=== PATIENT | male | born 1975 | race African-American/Black ===

== ENCOUNTER 2016-11-16 18:45 | Inpatient (IN) | payer SELFPAY ==
[2016-11-16] MEDS ORDERED: Morphine 2 MG/ML Syringe IVPUSH ONE ×2 (18:51→19:26)
[2016-11-16] MEDS: Labetalol 20 MG/4 ML Syringe IVPUSH ONE ×2 (18:54→19:33)
[2016-11-16] MEDS: Sodium Chloride 0.9% 1,000 ML IV SCH (19:00)
--- NOTE | 2016-11-16 19:06 | EDM.PDOC ---
ED HPI GENERAL MEDICAL PROBLEM - General Stated Complaint: CHEST PAIN Time Seen by Provider: 11/16/16 18:58 Source of Information: Reports: Patient, EMS, EMS Notes Reviewed History Limitations: Reports: Respiratory Distress - History of Present Illness INITIAL COMMENTS - FREE TEXT/NARRATIVE: 41 years old black male with a H/O HTN, came to the ed by EMS due SS chest pain. EMS was 7 min from [place] and 45 min from [place]. I adviced the EMS to come to our ED. On arrival, pt was crasping for air. 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 As soon O2 by NC was applied, Pt felt better. SBP was 169 on arrival HR was 115 and puls ox was 91 on RA. ECG showed t wave inversion inf leads (poor recording), no family. Onset: Today, Sudden Onset Date: 11/16/16 Onset Time: 18:00 Duration: Minutes:, Getting Worse Location: Reports: Chest Quality: Reports: Pressure, Stabbing, Throbbing Severity: Severe Improves with: Reports: Medication Worsens with: Reports: Movement Left Upper Anterior Chest Pain Score (Numeric/FACES): 6 - Related Data Allergies Allergy/AdvReac Type Severity Reaction Status Date / Time No Known Allergies Allergy Verified 11/16/16 20:40 Home Meds: Home Meds Losartan/Hydrochlorothiazide [Losartan-HCTZ 50-12.5 MG] 1 each PO DAILY [History] Past Medical History Cardiovascular History: Reports: Hypertension Social & Family History - Tobacco Use Smoking Status *Q: Current Every Day Smoker Years of Tobacco use: 20 Packs/Tins Daily: 0.5 - Recreational Drug Use Recreational Drug Use: No ED ROS GENERAL - Review of Systems Review Of Systems: See Below Constitutional: Reports: No Symptoms HEENT: Reports: No Symptoms Respiratory: Reports: Shortness of Breath Cardiovascular: Reports: Chest Pain Endocrine: Reports: No Symptoms GI/Abdominal: Reports: No Symptoms : Reports: No Symptoms Musculoskeletal: Reports: No Symptoms Skin: Reports: No Symptoms Neurological: Reports: No Symptoms Psychiatric: Reports: No Symptoms Hematologic/Lymphatic: Reports: No Symptoms Immunologic: Reports: No Symptoms ED EXAM, GENERAL - Physical Exam Exam: See Below Exam Limited By: Other (CP) General Appearance: Alert, WD/WN, Moderate Distress Eye Exam: Bilateral Eye: Normal Inspection Ears: Normal External Exam Ear Exam: Bilateral Ear: Auricle Normal Nose: Normal Inspection, Normal Mucosa Throat/Mouth: Normal Inspection Head: Atraumatic, Normocephalic Neck: Normal Inspection, Supple, Non-Tender, Full Range of Motion Respiratory/Chest: Lungs Clear, Decreased Breath Sounds, Accessory Muscle Use Cardiovascular: Tachycardia Peripheral Pulses: 3+: Femoral (L), Femoral (R) GI/Abdominal: Normal Bowel Sounds, Soft, Non-Tender, No Organomegaly (Male) Exam: Deferred Rectal (Males) Exam: Deferred Back Exam: Normal Inspection, Full Range of Motion Extremities: Normal Inspection, Normal Range of Motion, Non-Tender, No Pedal Edema Neurological: Alert, Oriented, CN II-XII Intact, Normal Cognition Psychiatric: Normal Affect, Normal Mood Skin Exam: Warm, Dry, Intact, Normal Color, No Rash Lymphatic: No Adenopathy EKG INTERPRETATION EKG Date: 11/16/16 Time: 18:45 Rhythm: NSR Rate (beats/min): 109 [place]: normal P-wave: present QRS: normal ST-T: normal QT: normal Comparison: NA - no prior EKG EKG Interpretation Comments: S1Q3T3 sign suggestive of PE Course - Vital Signs Text/Narrative:: 41 years old black male with a H/O HTN< came to the ed by EMS due SS chest pain. EMS was 7 min from [place] and 45 min from [place]. I adviced the EMS to come to our ED. On arrival, pt was crasping for air. 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 As soon O2 by NC was applied, Pt felt better. SBP was 169 on arrival HR was 115 and puls ox was 91 on RA. ECG showed S1Q3T3 Sign suggestive of PE PE: Sinus Tach, with SSCP, BP was 167/101 Labs: Pending Imaging: Pending Pt was signed out to Dr. Fitzgerald at 7 pm due to shift changes, after pt was stabilized with O2 by NC, Lapetolol, Morphin sulfate and NTG patch Last Recorded V/S: Last Vital Signs Temp 36.6 C 11/17/16 04:00 Pulse 94 11/17/16 04:00 Resp 18 11/17/16 04:00 BP 136/90 11/17/16 04:00 Pulse Ox 96 11/17/16 04:00 - Orders/Labs/Meds Orders: Active Orders 24 hr Category Date Time Status Ang Chest [CT] Stat Exams 11/16/16 19:44 Taken Chest 1V Frontal [CR] Stat Exams 11/16/16 18:50 Taken Medication Orders Sodium Chloride (Normal Saline) 1,000 mls @ 125 mls/hr IV ASDIRECTED JAQUELIN Stop: 11/18/16 02:59 Morphine Sulfate (Morphine) 2 mg IVPUSH Q2H PRN PRN Reason: Pain (severe 7-10) Last Admin: 11/17/16 03:55 Dose: 2 mg Admin: 11/17/16 00:15 Dose: 2 mg Admin: 11/16/16 22:26 Dose: 2 mg Rivaroxaban (Xarelto) 15 mg PO BID JAQUELIN Warfarin Sodium (Coumadin) 10 mg PO ONETIME ONE Stop: 11/17/16 16:01 Labs: Laboratory Tests 11/16/16 11/16/16 11/16/16 Range/Units 19:00 19:00 19:00 WBC 13.2 H (4.5-12.0) X10-3/uL RBC 4.99 (4.30-5.75) x10(6)uL Hgb 14.6 (11.5-15.5) g/dL Hct 43.4 (30.0-51.3) % MCV 86.8 (80-96) fL MCH 29.3 (27.7-33.6) pg MCHC 33.7 (32.2-35.4) g/dL RDW 12.6 (11.5-15.5) % Plt Count 255 (125-369) X10(3)uL MPV 8.6 (7.4-10.4) fL Neut % (Auto) 77.7 (46-82) % Lymph % (Auto) 13.6 (13-37) % [place] % (Auto) 5.7 (4-12) % Eos % (Auto) 1 (1.0-5.0) % Baso % (Auto) 2 (0-2) % Neut # (Auto) 10.2 H (1.6-8.3) # Lymph # (Auto) 1.8 (0.6-5.0) # [place] # (Auto) 0.8 (0.0-1.3) # Eos # (Auto) 0.1 (0.0-0.8) # Baso # (Auto) 0.3 H (0.0-0.2) # PT 10.3 (8.7-11.1) INR 1.02 (0.89-1.13) D-Dimer, Quantitative 647 H (100-400) ng/mL Sodium (135-145) mmol/L Potassium (3.5-5.3) mmol/L Chloride (100-110) mmol/L Carbon Dioxide (23-29) mmol/L BUN (5-20) mg/dL Creatinine (0.6-1.3) mg/dL Est Cr Clr Drug Dosing Estimated GFR (MDRD) (>60) BUN/Creatinine Ratio (9-20) Glucose (80-116) mg/dL Calcium (8.6-10.2) mg/dL Troponin I (0.02-0.06) NG/ML B-Natriuretic Peptide (0-100) pg/mL 11/16/16 11/16/16 11/16/16 Range/Units 19:00 19:00 19:00 WBC (4.5-12.0) X10-3/uL RBC (4.30-5.75) x10(6)uL Hgb (11.5-15.5) g/dL Hct (30.0-51.3) % MCV (80-96) fL MCH (27.7-33.6) pg MCHC (32.2-35.4) g/dL RDW (11.5-15.5) % Plt Count (125-369) X10(3)uL MPV (7.4-10.4) fL Neut % (Auto) (46-82) % Lymph % (Auto) (13-37) % [place] % (Auto) (4-12) % Eos % (Auto) (1.0-5.0) % Baso % (Auto) (0-2) % Neut # (Auto) (1.6-8.3) # Lymph # (Auto) (0.6-5.0) # [place] # (Auto) (0.0-1.3) # Eos # (Auto) (0.0-0.8) # Baso # (Auto) (0.0-0.2) # PT (8.7-11.1) INR (0.89-1.13) D-Dimer, Quantitative (100-400) ng/mL Sodium 136 (135-145) mmol/L Potassium 3.2 L (3.5-5.3) mmol/L Chloride 101 (100-110) mmol/L Carbon Dioxide 23 (23-29) mmol/L BUN 15 (5-20) mg/dL Creatinine 1.0 (0.6-1.3) mg/dL Est Cr Clr Drug Dosing TNP Estimated GFR (MDRD) > 60 (>60) BUN/Creatinine Ratio 15.0 (9-20) Glucose 168 H (80-116) mg/dL Calcium 9.4 (8.6-10.2) mg/dL Troponin I < 0.01 L (0.02-0.06) NG/ML B-Natriuretic Peptide < 5 (0-100) pg/mL Meds: Medications Generic Name Dose Route Start Last Admin Trade Name Freq PRN Reason Stop Dose Admin Sodium Chloride 1,000 mls @ 125 mls/hr 11/17/16 07:26 Normal Saline IV 11/18/16 02:59 ASDIRECTED [facility] Morphine Sulfate 2 mg 11/16/16 20:40 11/17/16 03:55 Morphine IVPUSH 2 mg Q2H PRN Administration Pain (severe 7-10) Rivaroxaban 15 mg 11/17/16 09:00 Xarelto PO BID [facility] Warfarin Sodium 10 mg 11/17/16 16:00 Coumadin PO 11/17/16 16:01 ONETIME ONE Discontinued Medications Generic Name Dose Route Start Last Admin Trade Name Freq PRN Reason Stop Dose Admin Enoxaparin Sodium 114 mg 11/16/16 21:00 11/16/16 22:08 Lovenox SUBCUT 114 mg BID [facility] Administration HCTZ/Losartan Potassium 0.5 tab 11/17/16 09:00 Hyzaar 100-25 Mg PO DAILY JAQUELIN Sodium Chloride 1,000 mls @ 125 mls/hr 11/16/16 19:00 11/17/16 03:57 Normal Saline IV 125 mls/hr ASDIRECTED JAQUELIN Administration Iopamidol 100 ml 11/16/16 19:47 11/16/16 20:03 Isovue-370 (76%) IV 11/16/16 19:48 100 ml . DIRECTED ONE Administration Labetalol HCl 10 mg 11/16/16 18:51 11/16/16 19:33 Normodyne IVPUSH 11/16/16 18:52 Not Given ONETIME ONE Protocol Morphine Sulfate 2 mg 11/16/16 18:51 11/16/16 19:30 Morphine IVPUSH 11/16/16 18:52 Not Given ONETIME ONE Morphine Sulfate 2 mg 11/16/16 19:26 11/16/16 19:31 Morphine IVPUSH 11/16/16 19:27 2 mg ONETIME ONE Administration Nitroglycerin 1 gm 11/16/16 18:55 11/16/16 19:33 Nitro-Bid 2% TOP 11/16/16 18:56 Not Given ONETIME ONE Departure - Departure Time of Disposition: 20:00 Disposition: Admitted As Inpatient 67 Condition: fair Clinical Impression: Pulmonary emboli Qualifiers: Pulmonary embolism type: other Chronicity: acute - My Orders Last 24 Hours: My Active Orders 11/16/16 18:50 Chest 1V Frontal [CR] Stat - Assessment/Plan Last 24 Hours: My Active Orders 11/16/16 18:50 Chest 1V Frontal [CR] Stat
[2016-11-16] MEDS: Nitroglycerin 2% Oint 1 GM UD Packet TOP ONE (19:33)
[2016-11-16] MEDS ORDERED: Iopamidol 755 Mg/ML 100 ML Bottle IV ONE (19:47)
[2016-11-16] MEDS ORDERED: Enoxaparin 120 MG/0.8 ML Syringe SUBCUT SCH (21:00)
[2016-11-16] MEDS: Morphine 2 MG/ML Syringe IVPUSH PRN (22:26)
[2016-11-17] MEDS: Morphine 2 MG/ML Syringe IVPUSH PRN ×5 (00:15→18:44)
--- NOTE | 2016-11-17 03:38 | ER ---
DATE SEEN: 11/16/2016 TIME SEEN: 1900 hours. REASON FOR VISIT: Chest pain. HISTORY OF PRESENT ILLNESS: This is a 41-year-old male with chest pain that started today, nonreproducible retrosternal pain that is severe with no radiation. REVIEW OF SYSTEMS: No cough, no fever or chills, no anxiety. PAST MEDICAL HISTORY: Hypertension. SOCIAL HISTORY: He is a heavy smoker. Denies use of drugs or alcohol. FAMILY HISTORY: Hypertension and diabetes in the family members. No coronary artery disease. PHYSICAL EXAMINATION: VITAL SIGNS: Afebrile. Initial blood pressure is more than 190s systolic. Oxygenation 98%. EARS, NOSE, AND THROAT: Negative. CHEST: No reproducible tenderness. LUNGS: Clear. CARDIOVASCULAR: Normal. EXTREMITIES: Normal. No edema or calf tenderness. LABORATORY DATA: D-dimer is positive at 647. EKG, no ST changes. Troponin negative. Chest x-ray was negative. CT revealed subtle PEs bilaterally. IMPRESSION: Pulmonary embolism. PLAN: My plan is to keep the patient for Lovenox and Coumadin. Monitoring and continue blood pressure treatment with home medications. /[id number] LES/VONDA
[2016-11-17] MEDS: Sodium Chloride 0.9% 1,000 ML IV SCH ×3 (03:57→20:04)
--- NOTE | 2016-11-17 08:03 | PCM.HP ---
H&P History of Present Illness - General Date of Service: 11/17/16 Admit Problem/Dx: Admission Diagnosis/Problem Admission Diagnosis/Problem PE, Pulmonary embolism Source of Information: Patient History Limitations: Reports: No Limitations - History of Present Illness Initial Comments - Free Text/Narative: This is a 41-year-old male patient states he was feeling well yesterday. He states he went to [employer] and came home and started having retrosternal chest pain. He denies any radiation, shortness of breath, diaphoresis or nausea. He was seen by the ER doctor and had a positive d-dimer. Subsequent chest CT showed pulmonary embolism. Patient states he does not have a history of clotting disorder or a family history. He denies any leg swelling. He's not had any recent surgery or travel. Left Upper Anterior Chest Pain Score (Numeric/FACES): 6 - Related Data Allergies/Adverse Reactions: Allergies Allergy/AdvReac Type Severity Reaction Status Date / Time No Known Allergies Allergy Verified 11/16/16 20:40 Home Medications: Home Meds Losartan/Hydrochlorothiazide [Losartan-HCTZ 50-12.5 MG] 1 each PO DAILY [History] Past Medical History Cardiovascular History: Reports: Hypertension Social & Family History - Family History Family Medical History: Noncontributory - Tobacco Use Smoking Status *Q: Current Every Day Smoker Years of Tobacco use: 20 Packs/Tins Daily: 0.5 Second Hand Smoke Exposure: No - Caffeine Use Caffeine Use: Reports: Soda - Recreational Drug Use Recreational Drug Use: No H&P Review of Systems - Review of Systems: Review Of Systems: See Below General: Reports: No Symptoms HEENT: Reports: No Symptoms Pulmonary: Reports: Pleuritic Chest Pain. Denies: Shortness of Breath, Wheezing , Cough, Sputum, Hemoptysis Cardiovascular: Reports: Chest Pain. Denies: Edema Gastrointestinal: Reports: No Symptoms Genitourinary: Reports: No Symptoms Musculoskeletal: Reports: No Symptoms Skin: Reports: No Symptoms Psychiatric: Reports: No Symptoms Neurological: Reports: No Symptoms Hematologic/Lymphatic: Reports: No Symptoms Immunologic: Reports: No Symptoms Exam - Exam Exam: See Below - Vital Signs Vital Signs: Last Vital Signs Temp 98 F 11/17/16 04:00 Pulse 94 11/17/16 04:00 Resp 18 11/17/16 04:00 BP 136/90 05/28/17 04:00 Pulse Ox 96 11/17/16 04:00 Weight: 250 lb - Exam Quality Assessment: Supplemental Oxygen General: Alert, Oriented, Cooperative HEENT: PERRLA, Hearing Intact, Mucosa Moist & [place], Posterior Pharynx Clear, Pupils Equal, Pupils Reactive, TMs Clear. No: Rhinitis Neck: Supple, Trachea Midline Lungs: Clear to Auscultation, Normal Respiratory Effort. No: Crackles, Rales, Rhonchi, Rub Cardiovascular: Regular Rate, Regular Rhythm, Normal S1, Normal S2. No: Bradycardia, Tachycardia, Systolic Murmur, Diastolic Murmur Abdomen: Normal Bowel Sounds, Soft. No: Organomegaly, Peritoneal Signs, Distention, Guarding Back Exam: Normal Inspection, Full Range of Motion Extremities: Normal Inspection, Other (No leg swelling bilateral) Skin: Warm, Intact Neurological: Normal Speech, Normal Tone Neuro Extensive - Mental Status: Alert, Oriented x3, Normal Mood/Affect, Normal Cognition Neuro Extensive - Motor, Sensory, Reflexes: Normal Gait Psychiatric: Alert, Normal Affect, Normal Mood - Patient Data Lab Results last 24 hrs: Laboratory Results - last 24 hr 11/17/16 11/17/16 11/17/16 Range/Units 06:20 06:20 06:20 WBC 14.2 H (4.5-12.0) X10-3/uL RBC 4.40 (4.30-5.75) x10(6)uL Hgb 12.8 (11.5-15.5) g/dL Hct 38.2 (30.0-51.3) % MCV 86.8 (80-96) fL MCH 29.2 (27.7-33.6) pg MCHC 33.6 (32.2-35.4) g/dL RDW 12.7 (11.5-15.5) % Plt Count 203 (125-369) X10(3)uL MPV 8.9 (7.4-10.4) fL Neut % (Auto) 72.1 (46-82) % Lymph % (Auto) 16.6 (13-37) % [place] % (Auto) 9.2 (4-12) % Eos % (Auto) 1 (1.0-5.0) % Baso % (Auto) 2 (0-2) % Neut # (Auto) 10.2 H (1.6-8.3) # Lymph # (Auto) 2.4 (0.6-5.0) # [place] # (Auto) 1.3 (0.0-1.3) # Eos # (Auto) 0.1 (0.0-0.8) # Baso # (Auto) 0.2 (0.0-0.2) # PT 11.2 H (8.7-11.1) INR 1.11 (0.89-1.13) Sodium 136 (135-145) mmol/L Potassium 3.5 (3.5-5.3) mmol/L Chloride 100 (100-110) mmol/L Carbon Dioxide 23 (23-29) mmol/L BUN 12 (5-20) mg/dL Creatinine 0.9 (0.6-1.3) mg/dL Est Cr Clr Drug Dosing TNP Estimated GFR (MDRD) > 60 (>60) BUN/Creatinine Ratio 13.3 (9-20) Glucose 133 H (80-116) mg/dL Calcium 9.1 (8.6-10.2) mg/dL Result Diagrams: 11/17/16 06:20 11/17/16 06:20 *Q Meaningful Use (ADM) - VTE *Q VTE Criteria *Q: - Stroke *Q Stroke Criteria *Q: - AMI *Q AMI Criteria *Q: Problem List Initiated/Reviewed/Updated: Yes Orders Last 24hrs: Active Orders 24 hr Category Date Time Status Regular Diet [DIET] Diet 11/17/16 Breakfast Active Hydrochlorothiazide/Losartan [Hyzaar 100-25 MG] Med 11/17/16 09:00 Active 0.5 tab PO DAILY Sodium Chloride 0.9% [Normal Saline] 1,000 ml Med 11/17/16 07:26 Active IV ASDIRECTED Medication Orders Enoxaparin Sodium (Lovenox) 114 mg SUBCUT BID [facility] Last Admin: 11/16/16 22:08 Dose: 114 mg Assessment/Plan Comment:: Assessment-pulmonary embolism Plan: 1. Lovenox was given x1. 2. O2 therapy and watch vital signs closely. 3. hold his blood pressure medicine until I know his pressure is doing well he 's stable. 4. Up ad toni. 5. Control pain with anti-inflammatories and morphine. 6. Xarelto 15 mg bid for 21 days
[2016-11-17] MEDS ORDERED: Hydrochlorothiazide/Losartan 25-100 MG Tab PO SCH (09:00)
[2016-11-17] MEDS: Rivaroxaban 15 MG Tab PO SCH ×2 (09:13→17:28)
[2016-11-17] MEDS: Nitroglycerin 2% Oint 1 GM UD Packet TOP ONE (11:16)
[2016-11-17] MEDS: traMADol 50 MG Tab PO PRN (11:34)
[2016-11-17] MEDS ORDERED: Warfarin 5 MG Tab PO ONE (16:00)
[2016-11-18] MEDS: traMADol 50 MG Tab PO PRN ×2 (03:21→11:32)
[2016-11-18] MEDS: Morphine 2 MG/ML Syringe IVPUSH PRN (05:24)
[2016-11-18] MEDS ORDERED: Hydrochlorothiazide/Losartan 25-100 MG Tab PO SCH (06:45)
[2016-11-18] MEDS ORDERED: Losartan 50 MG Tab PO SCH (07:00)
[2016-11-18] MEDS ORDERED: Hydrochlorothiazide 12.5 MG Cap PO SCH (07:00)
--- NOTE | 2016-11-18 11:11 | PCM.PN ---
- General Info Date of Service: 11/18/16 Admission Dx/Problem (Free Text): Patient states that he has a chest pain only when he walks. When he takes a deep breath he gets a little short of breath because of the chest pain only. No cough, wheezing, fevers, chills, palpitations - Patient Data Vitals - most recent: Last Vital Signs Temp 98.6 F 11/18/16 03:00 Pulse 102 H 11/18/16 06:32 Resp 20 11/18/16 06:32 BP 164/115 H 11/18/16 06:32 Pulse Ox 95 11/18/16 06:32 Weight - most recent: 250 lb I&O - last 24 hours: Intake & Output 11/17/16 11/18/16 11/18/16 22:59 06:59 14:59 Intake Total 1120 1585 Output Total 550 800 Balance 570 785 Med Orders - Current: Current Medications Hydrochlorothiazide (Hydrochlorothiazide) 12.5 mg PO DAILY [facility] Last Admin: 11/18/16 07:07 Dose: 12.5 mg Losartan Potassium (Cozaar) 50 mg PO DAILY [facility] Last Admin: 11/18/16 07:07 Dose: 50 mg Morphine Sulfate (Morphine) 2 mg IVPUSH Q2H PRN PRN Reason: Pain (severe 7-10) Last Admin: 11/18/16 05:24 Dose: 2 mg Rivaroxaban (Xarelto) 15 mg PO BIDMEALS [facility] Last Admin: 11/17/16 17:28 Dose: 15 mg Tramadol HCl (Ultram) 50 mg PO Q6H PRN PRN Reason: Pain Last Admin: 11/18/16 03:21 Dose: 50 mg Discontinued Medications Enoxaparin Sodium (Lovenox) 114 mg SUBCUT BID [facility] Last Admin: 11/16/16 22:08 Dose: 114 mg HCTZ/Losartan Potassium (Hyzaar 100-25 Mg) 0.5 tab PO DAILY [facility] HCTZ/Losartan Potassium (Hyzaar 100-25 Mg) 0.5 tab PO DAILY [facility] Last Admin: 11/18/16 07:47 Dose: Not Given Sodium Chloride (Normal Saline) 1,000 mls @ 125 mls/hr IV ASDIRECTED [facility] Last Admin: 11/17/16 03:57 Dose: 125 mls/hr Sodium Chloride (Normal Saline) 1,000 mls @ 125 mls/hr IV ASDIRECTED JAQUELIN Stop: 11/18/16 02:59 Last Admin: 11/17/16 20:04 Dose: 125 mls/hr Iopamidol (Isovue-370 (76%)) 100 ml IV . DIRECTED ONE Stop: 11/16/16 19:48 Last Admin: 11/16/16 20:03 Dose: 100 ml Labetalol HCl (Normodyne) 10 mg IVPUSH ONETIME ONE PRN Reason: Protocol Stop: 11/16/16 18:52 Last Admin: 11/16/16 19:33 Dose: Not Given Morphine Sulfate (Morphine) 2 mg IVPUSH ONETIME ONE Stop: 11/16/16 18:52 Last Admin: 11/16/16 19:30 Dose: Not Given Morphine Sulfate (Morphine) 2 mg IVPUSH ONETIME ONE Stop: 11/16/16 19:27 Last Admin: 11/16/16 19:31 Dose: 2 mg Nitroglycerin (Nitro-Bid 2%) 1 gm TOP ONETIME ONE Stop: 11/16/16 18:56 Last Admin: 11/17/16 11:16 Dose: Not Given - Exam General: alert, oriented, cooperative Neck: supple Lungs: Clear to auscultation, Normal respiratory effort. No: Crackles, Rales, Rhonchi, Rub Cardiovascular: Regular Rate, Regular Rhythm, No Murmurs Extremities: no edema - Problem List & Annotations (1) Pulmonary emboli SNOMED Code(s): 97059808, 50394022 Code(s): I26.99 - OTHER PULMONARY EMBOLISM WITHOUT ACUTE COR PULMONALE Status: Acute Current Visit: Yes Qualifiers: Pulmonary embolism type: other Chronicity: acute - Problem List Review Problem List Initiated/Reviewed/Updated: Yes - Plan Plan:: 1. Patient does not have insurance. I started him on Xarelto but I was able to find an dayo coupon for free three-day trial at our office. 2. He'll followup with Dr. Mcdonald next week. 3. off work for sees Dr. Mcdonald. 4. Tramadol 50 mg 4 times a day when necessary for pain.
--- NOTE | 2016-11-18 11:23 | PCM.DCSUM1 ---
Discharge Summary - Hospital Course Free Text/Narrative:: Hospital course-patient was admitted to the hospital and placed on Lovenox. Coumadin had not been given so I started Xarelto mg twice a day. Patient had chest pain and use tramadol for this and he did well. His blood pressure was actually elevated and his oxygen saturations were in the mid 90s on O2. After 24 hours of surveillance and he was stable we will discharge him to home. He has no insurance at this time. I was able to find and eliquis 30 day trial at the clinic. So sent home on Eliquis 10 mg twice a day for one week then 5 mg twice a day. I gave him a work excuse to be off work for about a week. 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 Mcdonald within week. I will also give him tramadol 50 mg 4 times a day when necessary for pain. Brief History: This is a 41-year-old male patient states he was feeling well yesterday. He states he went to [employer] and came home and started having retrosternal chest pain. He denies any radiation, shortness of breath, diaphoresis or nausea. He was seen by the ER doctor and had a positive d- dimer. Subsequent chest CT showed pulmonary embolism. Patient states he does not have a history of clotting disorder or a family history. He denies any leg swelling. He's not had any recent surgery or travel. - Discharge Data Discharge Date: 11/18/16 Discharge Disposition: Home, Self-Care 01 Condition: Good - Discharge Diagnosis/Problem(s) (1) Pulmonary emboli SNOMED Code(s): 75662240, 67836836 ICD Code: I26.99 - OTHER PULMONARY EMBOLISM WITHOUT ACUTE COR PULMONALE Status: Acute Current Visit: Yes Qualifiers: Pulmonary embolism type: other Chronicity: acute - Patient Instructions Diet: Regular Diet as Tolerated Activity: As Tolerated Driving: May Drive Today Showering/Bathing: May Shower Notify Provider of: Increased Pain Other/Special Instructions: 1. Recheck with Dr. Mcdonald within one week. 2. Hematology referral. - Discharge Plan Prescriptions/Med Rec: Apixaban [Eliquis] 5 mg PO BID #84 tablet traMADol [Ultram] 50 mg PO Q6HR PRN #30 tablet PRN Reason: Pain Home Medications: Home Meds Losartan/Hydrochlorothiazide [Losartan-HCTZ 50-12.5 MG] 1 each PO DAILY [History] Apixaban [Eliquis] 5 mg PO BID #84 tablet 11/18/16 [Rx] traMADol [Ultram] 50 mg PO Q6HR PRN #30 tablet 11/18/16 [Rx] Forms: ED Department Discharge Referrals: PCP,None [Primary Care Provider] - - Discharge Summary/Plan Comment DC Time >30 min.: No - Patient Data Vitals - Most Recent: Last Vital Signs Temp 98.6 F 11/18/16 03:00 Pulse 102 H 11/18/16 06:32 Resp 20 11/18/16 06:32 BP 164/115 H 11/18/16 06:32 Pulse Ox 95 11/18/16 06:32 Weight - Most Recent: 250 lb I&O - Last 24 hours: Intake & Output 11/17/16 11/18/16 11/18/16 22:59 06:59 14:59 Intake Total 1120 1585 Output Total 550 800 Balance 570 785 Med Orders - Current: Current Medications Hydrochlorothiazide (Hydrochlorothiazide) 12.5 mg PO DAILY [facility] Last Admin: 11/18/16 07:07 Dose: 12.5 mg Losartan Potassium (Cozaar) 50 mg PO DAILY [facility] Last Admin: 11/18/16 07:07 Dose: 50 mg Morphine Sulfate (Morphine) 2 mg IVPUSH Q2H PRN PRN Reason: Pain (severe 7-10) Last Admin: 11/18/16 05:24 Dose: 2 mg Rivaroxaban (Xarelto) 15 mg PO BIDMEALS [facility] Last Admin: 11/17/16 17:28 Dose: 15 mg Tramadol HCl (Ultram) 50 mg PO Q6H PRN PRN Reason: Pain Last Admin: 11/18/16 03:21 Dose: 50 mg Discontinued Medications Enoxaparin Sodium (Lovenox) 114 mg SUBCUT BID [facility] Last Admin: 11/16/16 22:08 Dose: 114 mg HCTZ/Losartan Potassium (Hyzaar 100-25 Mg) 0.5 tab PO DAILY [facility] HCTZ/Losartan Potassium (Hyzaar 100-25 Mg) 0.5 tab PO DAILY [facility] Last Admin: 11/18/16 07:47 Dose: Not Given Sodium Chloride (Normal Saline) 1,000 mls @ 125 mls/hr IV ASDIRECTED [facility] Last Admin: 11/17/16 03:57 Dose: 125 mls/hr Sodium Chloride (Normal Saline) 1,000 mls @ 125 mls/hr IV ASDIRECTED [facility] Stop: 11/18/16 02:59 Last Admin: 11/17/16 20:04 Dose: 125 mls/hr Iopamidol (Isovue-370 (76%)) 100 ml IV . DIRECTED ONE Stop: 11/16/16 19:48 Last Admin: 11/16/16 20:03 Dose: 100 ml Labetalol HCl (Normodyne) 10 mg IVPUSH ONETIME ONE PRN Reason: Protocol Stop: 11/16/16 18:52 Last Admin: 11/16/16 19:33 Dose: Not Given Morphine Sulfate (Morphine) 2 mg IVPUSH ONETIME ONE Stop: 11/16/16 18:52 Last Admin: 11/16/16 19:30 Dose: Not Given Morphine Sulfate (Morphine) 2 mg IVPUSH ONETIME ONE Stop: 11/16/16 19:27 Last Admin: 11/16/16 19:31 Dose: 2 mg Nitroglycerin (Nitro-Bid 2%) 1 gm TOP ONETIME ONE Stop: 11/16/16 18:56 Last Admin: 11/17/16 11:16 Dose: Not Given *Q Meaningful Use (DIS) - VTE *Q VTE Criteria *Q: - Stroke *Q Stroke Criteria *Q: - AMI *Q AMI Criteria *Q:
[2016-11-18] MEDS ORDERED: traMADol 50 MG Tab PO ONE (11:26)
[2016-11-18] MEDS: Rivaroxaban 15 MG Tab PO SCH (11:28)
[2016-11-18 14:20] VITALS: BP 178/117
--- NOTE | 2016-11-19 12:00 | CR ---
INDICATION: Chest pain. CHEST: AP upright view of the chest was obtained 11/16/2016. No comparison was available. The heart appeared slightly prominent in size, but is emphasized by the AP positioning. The aorta did not appear to be significantly tortuous. Pleural thickening is noted laterally and apically, most likely on the basis of fibrosis. It is fairly symmetrical. A definite active infiltrate or effusion was not identified. Lungs appear to be somewhat hyperaerated, raising question of obstructive airway disease. Overlying EKG leads are noted. IMPRESSION: No acute process, findings as noted above. MTDD
== END 2016-11-18 14:05 | disposition home or self-care (01) | DRG 176 ==
LOC: FB.ED 18:45 → FB.MS 20:40
PROVIDERS: ADMIT Family Medicine; ATTEND Family Medicine
DX: I26.99 Other pulmonary embolism without acute cor pulmonale (principal); Z79.01 Long term (current) use of anticoagulants; I10 Essential (primary) hypertension; F17.210 Nicotine dependence, cigarettes, uncomplicated; R07.9 Chest pain, unspecified
CPT/HCPCS: 36415; 71010; 71275; 80048; 83880; 84484; 85025; 85379; 85610; 93005; 96361; 96374; 96375; 99222; 99232; 99238; 99285; 99291; 99292; A9270-GY; J1650; J2270; J7040; Q9967

== ENCOUNTER 2017-10-14 20:47 | Emergency (ER) | payer BC ==
[2017-10-14 22:01] VITALS: BP 132/75
--- NOTE | 2017-10-14 22:19 | EDM.PDOC ---
ED HPI GENERAL MEDICAL PROBLEM - General Chief Complaint: Lower Extremity Injury/Pain Stated Complaint: RT KNEE AND ANKLE PAIN Time Seen by Provider: 10/14/17 22:14 Source of Information: Reports: Patient History Limitations: Reports: No Limitations - History of Present Illness INITIAL COMMENTS - FREE TEXT/NARRATIVE: Slipped in kitchen, twisted right ankle and right knee two days ago. Complains of right ankle pain and swelling and right knee pain. Duration: Day(s): (2) Location: Reports: Lower Extremity, Right Quality: Reports: Ache Severity: Moderate Improves with: Reports: None Worsens with: Reports: None Associated Symptoms: Reports: No Other Symptoms Rt foot and sore throat Pain Score (Numeric/FACES): 10 - Related Data Allergies Allergy/AdvReac Type Severity Reaction Status Date / Time No Known Allergies Allergy Verified 10/14/17 21:48 Home Meds: Home Meds Losartan/Hydrochlorothiazide [Losartan-HCTZ 50-12.5 MG] 1 each PO DAILY [History] Apixaban [Eliquis] 5 mg PO BID #84 tablet 11/18/16 [Rx] traMADol [Ultram] 50 mg PO Q6HR PRN #30 tablet 11/18/16 [Rx] Acetaminophen/HYDROcodone [[place] 325-5 MG] 1 - 2 tab PO Q6H PRN #20 tab [Rx] Penicillin V Potassium 500 mg PO Q12HR 10 Days #20 tab 10/14/17 [Rx] Past Medical History Cardiovascular History: Reports: Blood Clots/VTE/DVT, Hypertension Social & Family History - Family History Family Medical History: Noncontributory - Tobacco Use Smoking Status *Q: Current Every Day Smoker Years of Tobacco use: 20 Packs/Tins Daily: 0.5 Second Hand Smoke Exposure: No - Caffeine Use Caffeine Use: Reports: Soda - Recreational Drug Use Recreational Drug Use: No Review of Systems - Review of Systems Review Of Systems: See Below Constitutional: Reports: No Symptoms Eyes: Reports: No Symptoms Ears: Reports: No Symptoms Nose: Reports: No Symptoms Mouth/Throat: Reports: Other (sore throat) Respiratory: Reports: No Symptoms Cardiovascular: Reports: No Symptoms GI/Abdominal: Reports: No Symptoms Genitourinary: Reports: No Symptoms Musculoskeletal: Reports: Other (right knee and ankle pain) Skin: Reports: No Symptoms Neurological: Reports: No Symptoms Psychiatric: Reports: No Symptoms ED EXAM, GENERAL - Physical Exam Exam: See Below Exam Limited By: No Limitations General Appearance: Alert, WD/WN, No Apparent Distress Throat/Mouth: Other (mild tonsillar enlargement and erythema) Head: Atraumatic, Normocephalic Neck: Normal Inspection Respiratory/Chest: No Respiratory Distress Cardiovascular: Normal Peripheral Pulses Rectal (Males) Exam: Deferred Extremities: Other (Moderate tenderness and swelling to bilateral malleolus of right ankle. Mild tenderness to right knee) Course - Vital Signs Last Recorded V/S: Last Vital Signs Temp 37.4 C 10/14/17 21:58 Pulse 117 H 10/14/17 21:58 Resp 16 10/14/17 21:58 BP 132/75 10/14/17 21:58 Pulse Ox 100 10/14/17 21:58 - Orders/Labs/Meds Orders: Active Orders 24 hr Category Date Time Status Ankle Min 3V Rt [CR] Stat Exams 10/14/17 22:07 Taken Knee 3V Rt [CR] Stat Exams 10/14/17 22:08 Taken CULTURE STREP A CONFIRMATION [RM] Stat Lab 10/14/17 22:30 Results STREP SCRN A RAPID W CULT CONF [RM] Stat Lab 10/14/17 22:30 Ordered Acetaminophen/HYDROcodone [[place] 325-5 MG] Med 10/14/17 23:23 Once 2 tab PO ONETIME ONE Penicillin V Potassium [Veetids] Med 10/14/17 23:26 Once 500 mg PO ONETIME ONE - Radiology Interpretation Free Text/Narrative:: Right knee XR: no fx/dislocation Right Ankle XR: + distal fibula fx, mild widening of ankle mortise. - Re-Assessments/Exams Free Text/Narrative Re-Assessment/Exam: 10/14/17 23:40 Patient placed in fracture boot and given crutches. Departure - Departure Time of Disposition: 23:28 Disposition: Home, Self-Care 01 Condition: Good Clinical Impression: Fracture of distal end of right fibula, Strain of right knee, Pharyngitis - Discharge Information Prescriptions: Penicillin V Potassium 500 mg PO Q12HR 10 Days #20 tab Acetaminophen/HYDROcodone [[place] 325-5 MG] 1 - 2 tab PO Q6H PRN #20 tab PRN Reason: Pain (Moderate 4-6) Instructions: Nondisplaced Fibular Ankle Fracture Treated With Immobilization, Adult, Knee Sprain, Adult, [id number], Sore Throat Referrals: Shin Bolton MD [Primary Care Provider] - Paul Mario DO [Physician] - Forms: ED Department Discharge, ED Return to Work/School Form Additional Instructions: Follow up with Dr. Ryan Mario (orthopedic surgeon in 2 days). - Problem List & Annotations (1) Fracture of distal end of right fibula SNOMED Code(s): 285460283 Code(s): S82.831A - OTH FRACTURE OF UPPER AND LOWER END OF RIGHT FIBULA, INIT Status: Acute Priority: High Current Visit: Yes Annotation/Comment: : Placed in fracture boot, given crutches, advised to follow up with Orthopedic Surgery in 2 days Qualifiers: Encounter type: initial encounter Fracture type: closed Fracture morphology: unspecified fracture morphology Qualified Code(s): S82.831A - Other fracture of upper and lower end of right fibula, initial encounter for closed fracture (2) Pharyngitis SNOMED Code(s): 447358619 Code(s): J02.9 - ACUTE PHARYNGITIS, UNSPECIFIED Status: Acute Current Visit: Yes Annotation/Comment:: Daughter is positive for strep, will treat patient with Pen VK Qualifiers: Pharyngitis/tonsillitis etiology: unspecified etiology Qualified Code(s): J02.9 - Acute pharyngitis, unspecified (3) Strain of right knee SNOMED Code(s): 169391898097 Code(s): S86.911A - STRAIN OF UNSP MUSC/TEND AT LOWER LEG LEVEL, RIGHT LEG, INIT Status: Acute Current Visit: Yes Qualifiers: Encounter type: initial encounter Qualified Code(s): S86.911A - Strain of unspecified muscle(s) and tendon(s) at lower leg level, right leg, initial encounter - Problem List Review Problem List Initiated/Reviewed/Updated: Yes - My Orders Last 24 Hours: My Active Orders 10/14/17 22:07 Ankle Min 3V Rt [CR] Stat 10/14/17 22:08 Knee 3V Rt [CR] Stat 10/14/17 22:30 CULTURE STREP A CONFIRMATION [RM] Stat STREP SCRN A RAPID W CULT CONF [RM] Stat 10/14/17 23:23 Acetaminophen/HYDROcodone [[place] 325-5 MG] 2 tab PO ONETIME ONE 10/14/17 23:26 Penicillin V Potassium [Veetids] 500 mg PO ONETIME ONE - Assessment/Plan Last 24 Hours: My Active Orders 10/14/17 22:07 Ankle Min 3V Rt [CR] Stat 10/14/17 22:08 Knee 3V Rt [CR] Stat 10/14/17 22:30 CULTURE STREP A CONFIRMATION [RM] Stat STREP SCRN A RAPID W CULT CONF [RM] Stat 10/14/17 23:23 Acetaminophen/HYDROcodone [[place] 325-5 MG] 2 tab PO ONETIME ONE 10/14/17 23:26 Penicillin V Potassium [Veetids] 500 mg PO ONETIME ONE
[2017-10-14] MEDS ORDERED: Acetaminophen/HYDROcodone 325-5 MG Tab PO ONE (23:23)
[2017-10-14] MEDS ORDERED: Penicillin V Potassium 500 MG Tab PO ONE (23:26)
--- NOTE | 2017-10-15 11:42 | CR ---
INDICATION: Injury, knee gave out, ankle rolled. RIGHT ANKLE: Three views of the right ankle revealed a spiral fracture through the distal shaft - metaphysis of the fibula with an appearance of 8.4 mm overriding of fracture fragments and 7 mm lateral offset of the distal fracture fragment. There is also posterior offset of the distal fracture fragment at the superior aspect of the fracture site of approximately 6.8 mm. Medial widening of the ankle mortise is compatible with lateral subluxation of the talus with respect to the tibia. Medial and posterior malleoli were intact. Soft tissue swelling is noted about the entire ankle. IMPRESSION: Fracture with deformity at the distal fibula, with subluxation laterally of the talus. MTDD
--- NOTE | 2017-10-15 11:43 | CR ---
INDICATION: Injury, knee gave out, ankle rolled. RIGHT KNEE: Three views of the right knee revealed minimal hypertrophic change at the medial aspect of the tibia. A fracture, dislocation, or other significant bone or joint abnormality was not identified. MTDD
== END 2017-10-14 23:52 | disposition home or self-care (01) ==
LOC: FB.ED 20:47
DX: S82.831A Other fracture of upper and lower end of right fibula, initial encounter for closed fracture (principal); S86.911A Strain of unspecified muscle(s) and tendon(s) at lower leg level, right leg, initial encounter; F17.210 Nicotine dependence, cigarettes, uncomplicated; J02.9 Acute pharyngitis, unspecified; I10 Essential (primary) hypertension; Z79.899 Other long term (current) drug therapy; W01.0XXA Fall on same level from slipping, tripping and stumbling without subsequent striking against object, initial encounter; Y92.000 Kitchen of unspecified non-institutional (private) residence as the place of occurrence of the external cause
CPT/HCPCS: 73562; 73610; 87081; 87880; 99284; A9270

== ENCOUNTER 2018-03-12 16:18 | Emergency (ER) | payer BC ==
[2018-03-12] MEDS ORDERED: Acetaminophen 325 MG Tab PO ONE (19:35)
--- NOTE | 2018-03-12 19:55 | EDM.PDOC ---
ED HPI GENERAL MEDICAL PROBLEM - General Chief Complaint: Chest Pain Stated Complaint: CHEST PAIN Time Seen by Provider: 03/12/18 16:45 Source of Information: Reports: Patient History Limitations: Reports: No Limitations - History of Present Illness INITIAL COMMENTS - FREE TEXT/NARRATIVE: Presents with intermittent sharp substernal chest pain since 30 radiating to back, worse with movement and bending over. Currently pain-free. Has a h/o PE on Eliquis, missed a dose on 03/07/18, otherwise compliant. Denies SOB or cough. Onset: Today Onset Date: 03/12/18 Onset Time: 00:30 Location: Reports: Chest Severity: Moderate - Related Data Allergies Allergy/AdvReac Type Severity Reaction Status Date / Time No Known Allergies Allergy Verified 10/14/17 21:48 Home Meds: Home Meds Losartan/Hydrochlorothiazide [Losartan-HCTZ 50-12.5 MG] 1 each PO DAILY [History] Apixaban [Eliquis] 5 mg PO BID #84 tablet 11/18/16 [Rx] traMADol [Ultram] 50 mg PO Q6HR PRN #30 tablet 11/18/16 [Rx] Acetaminophen/HYDROcodone [[place] 325-5 MG] 1 - 2 tab PO Q6H PRN #20 tab [Rx] Penicillin V Potassium 500 mg PO Q12HR 10 Days #20 tab 10/14/17 [Rx] Past Medical History Cardiovascular History: Reports: Blood Clots/VTE/DVT, Hypertension. Denies: [place] Social & Family History - Family History Family Medical History: Noncontributory - Tobacco Use Smoking Status *Q: Current Every Day Smoker Tobacco Use Within Last Twelve Months: Cigarettes - Caffeine Use Caffeine Use: Reports: Soda - Alcohol Use Alcohol Use History: Yes Alcohol Use Frequency: Socially ED ROS GENERAL - Review of Systems Review Of Systems: ROS reveals no pertinent complaints other than HPI. ED EXAM, GENERAL - Physical Exam Exam: See Below Exam Limited By: No Limitations General Appearance: Alert, WD/WN, No Apparent Distress Ears: Normal External Exam Nose: Normal Inspection Throat/Mouth: Normal Inspection, No Airway Compromise Head: Atraumatic, Normocephalic Neck: Full Range of Motion Respiratory/Chest: No Respiratory Distress, Lungs Clear, Normal Breath Sounds, Chest Non-Tender Cardiovascular: Regular Rate, Rhythm, No Murmur GI/Abdominal: No Distention Back Exam: Full Range of Motion Extremities: Normal Range of Motion Neurological: Alert, Oriented, Normal Cognition, No Motor/Sensory Deficits Psychiatric: Normal Affect, Normal Mood Skin Exam: Warm, Dry, Intact EKG INTERPRETATION EKG Date: 03/12/18 Time: 17:29 Rhythm: NSR Rate (Beats/Min): 81 [place]: Normal P-Wave: Present QRS: Normal ST-T: Other (flipped t waves III, aVF (no change 11/16/16)) QT: Normal Comparison: No Change (11/16/16) Course - Orders/Labs/Meds Orders: Active Orders 24 hr Category Date Time Status EKG Documentation Completion [RC] ASDIRECTED Care 03/12/18 16:45 Active CXR [Chest 2V] [CR] Stat Exams 03/12/18 19:49 Ordered EKG 12 Lead [EK] Stat Ther 03/12/18 16:44 Ordered Labs: Laboratory Tests 03/12/18 03/12/18 03/12/18 Range/Units 16:50 16:50 16:50 WBC 7.1 (4.5-12.0) X10-3/uL RBC 5.18 (4.30-5.75) x10(6)uL Hgb 15.1 (11.5-15.5) g/dL Hct 44.6 (30.0-51.3) % MCV 86.1 (80-96) fL MCH 29.1 (27.7-33.6) pg MCHC 33.8 (32.2-35.4) g/dL RDW 12.3 (11.5-15.5) % Plt Count 201 (125-369) X10(3)uL MPV 9.1 (7.4-10.4) fL Neut % (Auto) 65.6 (46-82) % Lymph % (Auto) 25.1 (13-37) % [place] % (Auto) 5.9 (4-12) % Eos % (Auto) 3 (1.0-5.0) % Baso % (Auto) 1 (0-2) % Neut # (Auto) 4.7 (1.6-8.3) # Lymph # (Auto) 1.8 (0.6-5.0) # [place] # (Auto) 0.4 (0.0-1.3) # Eos # (Auto) 0.2 (0.0-0.8) # Baso # (Auto) 0.0 (0.0-0.2) # Sodium 136 (135-145) mmol/L Potassium 4.0 (3.5-5.3) mmol/L Chloride 99 L (100-110) mmol/L Carbon Dioxide 31 (21-32) mmol/L BUN 16 (7-18) mg/dL Creatinine 1.0 (0.70-1.30) mg/dL Est Cr Clr Drug Dosing TNP Estimated GFR (MDRD) > 60 (>60) BUN/Creatinine Ratio 16.0 (9-20) Glucose 226 H (80-116) mg/dL Calcium 8.9 (8.6-10.2) mg/dL Total Bilirubin 0.3 (0.1-1.3) mg/dL AST 15 (5-25) IU/L ALT 39 H (12-36) U/L Alkaline Phosphatase 76 (56-112) IU/L Troponin I < 0.017 L (<0.017-0.056) ng/mL Total Protein 7.4 (6.0-8.0) g/dL Albumin 3.5 (3.5-5.2) g/dL Globulin 3.9 g/dL Albumin/Globulin Ratio 0.9 Meds: Medications Discontinued Medications Generic Name Dose Route Start Last Admin Trade Name Freq PRN Reason Stop Dose Admin Acetaminophen 650 mg 03/12/18 19:35 03/12/18 19:35 Tylenol PO 03/12/18 19:36 650 mg NOW ONE Administration - Radiology Interpretation Free Text/Narrative:: CXR: NAD Departure - Departure Time of Disposition: 20:09 Disposition: Home, Self-Care 01 Condition: Good Clinical Impression: Atypical chest pain Referrals: Shin Bolton MD [Primary Care Provider] - Forms: ED Department Discharge, ED Return to Work/School Form Additional Instructions: Rest, OTC Tylenol as needed. Follow up with your primary physician in 2-3 days. Return to the ER if symptoms worsen. - My Orders Last 24 Hours: My Active Orders 03/12/18 16:44 EKG 12 Lead [EK] Stat 03/12/18 16:45 EKG Documentation Completion [RC] ASDIRECTED 03/12/18 19:49 CXR [Chest 2V] [CR] Stat - Assessment/Plan Last 24 Hours: My Active Orders 03/12/18 16:44 EKG 12 Lead [EK] Stat 03/12/18 16:45 EKG Documentation Completion [RC] ASDIRECTED 03/12/18 19:49 CXR [Chest 2V] [CR] Stat
[2018-03-12 20:24] VITALS: BP 124/80
--- NOTE | 2018-03-17 08:04 | CR ---
INDICATION: Chest pain. CHEST: PA and lateral views of the chest were obtained 03/12/2018 and compared with 11/16/2016 portable, revealing the heart to be normal in size and shape. Mediastinum and bony thorax were unremarkable. Mildly flattened diaphragm leaves, somewhat prominent AP diameter, and minimal hyperaeration may be present, raising question of COPD - correlate clinically. Minimal fibrotic appearing changes are noted in the right upper lung field and left lung base with blunting of the left costophrenic angle. These findings are most likely due to fibrosis. They appear essentially unchanged from the previous study. A definite active infiltrate or effusion was not seen. IMPRESSION: Fairly stable appearance of the chest with no definite acute process. The heart did not appear enlarged. MTDD
== END 2018-03-12 20:17 | disposition home or self-care (01) ==
LOC: FB.ED 16:18
DX: R07.2 Precordial pain (principal); I10 Essential (primary) hypertension; F17.210 Nicotine dependence, cigarettes, uncomplicated; Z79.899 Other long term (current) drug therapy
CPT/HCPCS: 36415; 71046; 80053; 84484; 85025; 93005; 99285; A9270-GY

== ENCOUNTER 2018-12-26 18:48 | Emergency (ER) | payer BC, MEDICAID ==
--- NOTE | 2018-12-26 20:16 | EDM.PDOC ---
ED HPI GENERAL MEDICAL PROBLEM - General Chief Complaint: Genitourinary Problem Stated Complaint: POSSIBLE STD, DISCHARGE Time Seen by Provider: 12/26/18 19:55 Source of Information: Reports: Patient History Limitations: Reports: No Limitations - History of Present Illness INITIAL COMMENTS - FREE TEXT/NARRATIVE: 41-year-old male who reports onset of penile discharge yesterday. He also notes burning with urination. He rates that burning as a 7/10. It is worse with urination. No abdominal pain. He has had no nausea or vomiting. He is sexually active with one female partner. No penile or scrotal pain. He has been eating and drinking normally. He does have a history of an ACL tear in his right leg and he does complain of chronic pain in that right leg and what he feels is inflammation. He specifically asked me for "inflammation medicine for his knee" . This is not a new finding. There are no other associated signs or symptoms. There are no other modifying factors. Onset: Other (Yesterday) Duration: Constant Location: Reports: Other (Penile discharge) Quality: Reports: Burning (With urination) Severity: Moderate Improves with: Reports: None Worsens with: Reports: Other (Urination) Context: Reports: Other (As above) Associated Symptoms: Reports: No Other Symptoms Treatments [employer]: Reports: Other (see below) (Nothing) - Related Data Allergies Allergy/AdvReac Type Severity Reaction Status Date / Time No Known Allergies Allergy Verified 12/26/18 19:17 Home Meds: Home Meds Losartan/Hydrochlorothiazide [Losartan-HCTZ 50-12.5 MG] 1 tab PO DAILY 05/07/18 [History] Apixaban [Eliquis] 2.5 mg PO BID tablet 05/08/18 [Rx] Insuln Asp Prot/Insulin Aspart [NovoLOG Mix 70-30] 15 unit SUBCUT BIDMEALS pen 05/08/18 [Rx] metFORMIN [Glucophage] 500 mg PO BIDMEALS tablet 05/08/18 [Rx] Naproxen [Naprosyn] 500 mg PO BID PRN #30 tablet 12/26/18 [Rx] Past Medical History Cardiovascular History: Reports: Blood Clots/VTE/DVT, Hypertension Respiratory History: Reports: PE Musculoskeletal History: Reports: Other (See Below) Other Musculoskeletal History: fx to right leg, fx to right ankle -acl Lknee Endocrine/Metabolic History: Reports: Obesity/BMI 30+ - Past Surgical History Musculoskeletal Surgical History: Reports: Arthroscopic Knee, Arthroscopic Procedure, ORIF (Right ankle) Other Musculoskeletal Surgeries/Procedures:: L knee scope Social & Family History - Tobacco Use Smoking Status *Q: Current Every Day Smoker Years of Tobacco use: 22 Packs/Tins Daily: 0.5 - Caffeine Use Caffeine Use: Reports: Soda - Alcohol Use Alcohol Use History: Yes Days Per Week of Alcohol Use: 3 Number of Drinks Per Day: 4 Total Drinks Per Week: 12 - Recreational Drug Use Recreational Drug Use: Yes - Sexual History Sexual History: Reports: Single Partner - Living Situation & Occupation Occupation: Unemployed ED ROS GENERAL - Review of Systems Review Of Systems: See Below Constitutional: Reports: No Symptoms HEENT: Reports: No Symptoms Respiratory: Reports: No Symptoms Cardiovascular: Reports: No Symptoms Endocrine: Reports: No Symptoms GI/Abdominal: Reports: No Symptoms : Reports: Discharge, Dysuria Musculoskeletal: Reports: Joint Pain (Chronic right knee pain) Skin: Reports: No Symptoms Neurological: Reports: No Symptoms Hematologic/Lymphatic: Reports: Easy Bleeding (Patient is on Eliquis) Immunologic: Reports: No Symptoms ED EXAM, RENAL/ - Physical Exam Exam: See Below Exam Limited By: No Limitations General Appearance: Alert, WD/WN, No Apparent Distress Eye Exam: Bilateral Eye: EOMI, Normal Inspection, PERRL Ears: Normal External Exam Nose: Normal Inspection, Normal Mucosa, No Blood Throat/Mouth: Normal Inspection, Normal Voice, No Airway Compromise Head: Atraumatic, Normocephalic Neck: Normal Inspection, Supple, Non-Tender, Full Range of Motion Respiratory/Chest: No Respiratory Distress, Lungs Clear, Normal Breath Sounds, No Accessory Muscle Use, Chest Non-Tender Cardiovascular: Normal Peripheral Pulses, Regular Rate, Rhythm, No JVD GI/Abdominal: Normal Bowel Sounds, Soft, Non-Tender, No Mass (Male) Exam: Normal Inspection, Circumcised Back Exam: Normal Inspection Extremities: Normal Inspection, No Pedal Edema, Normal Capillary Refill, Other ( Some tenderness to right knee but no increase in warmth or redness.). No: Joint Swelling Neurological: Alert, Oriented, CN II-XII Intact, Normal Cognition, No Motor/ Sensory Deficits Skin Exam: Warm, Dry, Intact, Normal Color, No Rash Course - Vital Signs Last Recorded V/S: Last Vital Signs Temp 36.9 C 12/26/18 19:00 Pulse 82 12/26/18 20:29 Resp 18 12/26/18 20:29 BP 151/81 H 12/26/18 20:29 Pulse Ox 100 12/26/18 20:29 - Orders/Labs/Meds Orders: Active Orders 24 hr Category Date Time Status CHLAMYDIA/GC AMPLIFICATION Stat Lab 12/26/18 19:05 Received CULTURE URINE [RM] Stat Lab 12/26/18 20:23 Ordered Labs: Laboratory Tests 12/26/18 Range/Units 19:45 Urine Color Yellow (YELLOW) Urine Appearance Slightly cloudy (CLEAR) Urine pH 6.0 (5.0-6.5) Ur Specific [place] 1.020 (1.010-1.025) Urine Protein Negative (NEGATIVE) mg/dL Urine Glucose (UA) Normal (NORMAL) mg/dL Urine Ketones Negative (NEGATIVE) mg/dL Urine Occult Blood Negative (NEGATIVE) Urine Nitrite Negative (NEGATIVE) Urine Bilirubin Negative (NEGATIVE) Urine Urobilinogen Normal (NEGATIVE) mg/dL Ur Leukocyte Esterase Small H (NEGATIVE) Urine RBC 0-5 (0-5) Urine WBC 20-30 H (0-5) Ur Squamous Epith Cells Few H (NS,R,O) Urine Bacteria Moderate H (NS) Meds: Medications Discontinued Medications Generic Name Dose Route Start Last Admin Trade Name Freq PRN Reason Stop Dose Admin Azithromycin 1,000 mg 12/26/18 20:17 12/26/18 20:30 Zithromax PO 12/26/18 20:18 1,000 mg ONETIME ONE Administration Ceftriaxone Sodium 250 mg 12/26/18 20:17 12/26/18 20:34 Rocephin IM 12/26/18 20:18 250 mg ONETIME ONE Administration Ondansetron HCl 4 mg 12/26/18 20:17 12/26/18 20:30 Zofran Odt PO 12/26/18 20:18 4 mg ONETIME ONE Administration - Re-Assessments/Exams Free Text/Narrative Re-Assessment/Exam: 12/26/18 20:43: Patient has what appears to be an STD. His urine did have white cells and bacteria present and I sent the urine for culture. His symptoms, however, point toward this being a sexually transmitted disease and he was treated with Rocephin 250 mg IM and Zithromax 1 g by mouth. He is to follow-up with his primary doctor. He also asked for an anti-inflammatory medication that he can take for his knee pain. I will give him a prescription for naproxen. Departure - Departure Time of Disposition: 20:46 Disposition: Home, Self-Care 01 Condition: Good Clinical Impression: STD (male), Urethritis, Chronic pain of right knee - Discharge Information Prescriptions: Naproxen [Naprosyn] 500 mg PO BID PRN #30 tablet PRN Reason: Pain Instructions: Sexually Transmitted Disease, [id number], Knee Pain, Adult, [id number] Referrals: Shin Bolton MD [Primary Care Provider] - Forms: ED Department Discharge Additional Instructions: You appear to have a sexually transmitted disease. I did send your urine for culture and if this is positive, we will call you. We did treat you for transmitted disease today. You should have all sexual partners checked by their doctor. I have given you a prescription for Naprosyn that you may use as needed for your knee pain. Follow-up with your primary doctor in regard to your knee pain. Back to the emergency department for abdominal pain, fever, vomiting or any other concerning sign or symptom. - My Orders Last 24 Hours: My Active Orders 12/26/18 19:05 CHLAMYDIA/GC AMPLIFICATION Stat 12/26/18 20:23 CULTURE URINE [RM] Stat - Assessment/Plan Last 24 Hours: My Active Orders 12/26/18 19:05 CHLAMYDIA/GC AMPLIFICATION Stat 12/26/18 20:23 CULTURE URINE [RM] Stat
[2018-12-26] MEDS ORDERED: Azithromycin 500 MG Tab PO ONE (20:17)
[2018-12-26] MEDS ORDERED: Ondansetron 4 MG Tab.DIS PO ONE (20:17)
[2018-12-26] MEDS ORDERED: cefTRIAXone 250 MG Vial IM ONE (20:17)
[2018-12-27 00:16] VITALS: BP 150/112; PULSE 87
[2018-12-30 10:11] LABS: CHLAMYDIA TRACHOMATIS, NAA Positive (Negative); NEISSERIA GONORRHOEAE, NAA Positive (Negative)
== END 2018-12-26 21:00 | disposition home or self-care (01) ==
LOC: FB.ED 18:48
DX: A64 Unspecified sexually transmitted disease (principal); M25.561 Pain in right knee; G89.29 Other chronic pain; I10 Essential (primary) hypertension; F17.210 Nicotine dependence, cigarettes, uncomplicated; Z79.01 Long term (current) use of anticoagulants; Z79.899 Other long term (current) drug therapy
CPT/HCPCS: 81001; 87086; 87491; 87591; 96372; 99283; A9270; J0696